=== PATIENT | male | born 1965 | race Two or more races ===

== ENCOUNTER 2024-06-26 18:47 | Emergency (ER) | payer SELFPAY ==
[2024-06-26 19:23] VITALS: BMI 32.5
[2024-06-26 19:51] LABS: VENOUS BASE EXCESS 0.5 mmol/L (-2-2); VENOUS O2 SATURATION 41.3 % (70-80); VENOUS PCO2 53.7 mmHg (38-52); VENOUS PH 7.329 (7.310-7.410)
[2024-06-26 19:52] LABS: BASO % 0.5 % (0-2.0); EOS % 2.1 % (0-4.5); HEMATOCRIT 46.6 % (35.4-49); HEMOGLOBIN 15.7 GM/dL (11.7-16.9); LYMPH % 34.1 % (8-40); MCH 29.5 pg (25.7-33.7); MCHC 33.6 g/dl (32.0-35.9); MEAN CELL VOLUME 87.7 fl (80-96); MEAN PLT VOLUME 7.9 fl (7.5-11.1); MONO % 8.5 % (3.8-10.2); NEUT % 54.8 % (42.8-82.8); PLATELET COUNT 252 10^3/uL (134-434); RBC 5.31 M/mm3 (4.00-5.60); RDW 13.9 % (11.9-15.9)
[2024-06-26] MEDS: LACTATED RINGERS SOLUTION 1000 ML INFUS.BAG IV ONE (20:05)
[2024-06-26] MEDS: ONDANSETRON 4 MG/2 ML VIAL IVPUSH ONE (20:06)
[2024-06-26 20:34] LABS: LACTIC ACID 2.4 mmol/L (0.4-2.0)
[2024-06-26 20:39] LABS: CALCIUM 8.9 mg/dL (8.5-10.1); POTASSIUM 5.3 mmol/L (3.5-5.1)
[2024-06-26 20:46] LABS: ALBUMIN 3.5 g/dl (3.4-5.0); CREATININE 0.9 mg/dL (0.55-1.3); TOT PROT 7.8 g/dl (6.4-8.2)
[2024-06-26] MEDS: SODIUM CHLORIDE 0.9% 500 ML INFUS.BAG IV ONE (22:00)
[2024-06-26] MEDS ORDERED: ACETAMINOPHEN INJECTION 100 ML ONE (22:06)
[2024-06-26] MEDS: ACETAMINOPHEN 1000 MG/100 ML BAG IVPB ONE (22:26)
[2024-06-26 22:30] LABS: PH,URINE 5.5 (5.0-8.0); URINE APPEARANCE CLEAR; URINE BILIRUBIN NEGATIVE (NEGATIVE); URINE COLOR YELLOW; URINE GLUCOSE (UA) 3+ (NEGATIVE); URINE KETONE TRACE (NEGATIVE); URINE LEUK ESTERASE NEGATIVE (NEGATIVE); URINE NITRITE NEGATIVE (NEGATIVE); URINE PROTEIN TRACE (NEGATIVE); URINE UROBILINOGEN 0.2 mg/dL (0.2-1.0)
[2024-06-26 22:54] LABS: POTASSIUM 4.1 mmol/L (3.5-5.1)
[2024-06-26 22:55] LABS: CALCIUM 8.7 mg/dL (8.5-10.1)
[2024-06-26 22:56] LABS: BLOOD UREA NITROGEN 19.2 mg/dL (7-18)
[2024-06-26 22:59] LABS: CREATININE 0.6 mg/dL (0.55-1.3)
[2024-06-27 00:02] VITALS: BP 129/87; PULSE 84; RESP 19; TEMP 97.9
== END 2024-06-27 01:57 | disposition home or self-care (01) ==
LOC: JER 18:47
PROC: 3E033NZ Introduction of Analgesics, Hypnotics, Sedatives into Peripheral Vein, Percutaneous Approach (ICD-10-PCS; principal; 2024-06-26)
PROC: 3E033GC Introduction of Other Therapeutic Substance into Peripheral Vein, Percutaneous Approach (ICD-10-PCS; 2024-06-26)
DX: R41.82 Altered mental status, unspecified (principal); R11.2 Nausea with vomiting, unspecified; R42 Dizziness and giddiness; R53.1 Weakness; Z20.822 Contact with and (suspected) exposure to COVID-19
CPT/HCPCS: 0241U-QW; 36415; 70450-TC; 71045-TC-FY; 80048; 80053; 81003; 82010; 82140; 82803; 82962; 83605; 83735; 84484; 85025; 87086; 93005; 93010; 99285-25; J0131